=== PATIENT | female | born 1955 | race Caucasian/White ===

== ENCOUNTER 2018-12-30 10:34 | Day surgery (SDC) | payer MEDICAID ==
[~2018-12-30] VITALS: Ht 157.5 cm; Wt 83.5 kg
[~2018-12-30 10:34] MED LIST: ALBU05 IH; ALBU90AE IH; CHOL20004 PO; FLUT1DIS3 IH; SIMV10TA6 PO
[2018-12-30] MEDS ORDERED: TROPICAMIDE 1% OPHTH DROPS 15ML LEFTEYE SCH (11:00)
[2018-12-30] MEDS ORDERED: PHENYLEPHRINE HCL 10% OPHTH DROPS 5ML LEFTEYE SCH (11:00)
[2018-12-30] MEDS ORDERED: CYCLOPENTOLATE HCL 1% OPHTH DROPS 2ML LEFTEYE SCH (11:00)
[2018-12-30] MEDS ORDERED: LACTATED RINGERS 1,000 ML IV SCH (11:00)
[2018-12-30] MEDS ORDERED: BALANCED SALT IRRIG SOLN COMB1 500ML OP NR (11:15)
[2018-12-30] MEDS ORDERED: HYALURONATE SODIUM 14 MG/ML 0.85ML SYRINGE IO ONE (12:27)
[2018-12-30] MEDS ORDERED: CYCLOPENTOLATE HCL 1% OPHTH DROPS 2ML ONE (14:38)
[2018-12-30] MEDS ORDERED: LIDOCAINE HCL/PF 2% 20 MG/ML 10ML VIAL ONE (14:38)
[2018-12-30] MEDS ORDERED: NEO/POLYMYX B SULF/DEXAMETH OPHTH OINT 3.5GM ONE (14:38)
[2018-12-30] MEDS ORDERED: TETRACAINE 0.5% OPHTH DROPS 4ML ONE (14:38)
[2018-12-30] MEDS ORDERED: PHENYLEPHRINE HCL 10% OPHTH DROPS 5ML ONE (14:38)
[2018-12-30] MEDS ORDERED: BALANCED SALT IRRIG SOLN 15ML ONE (14:38)
[2018-12-30] MEDS ORDERED: PHENYLEPHRINE HCL 2.5% OPHTH DROPS 2ML ONE (14:38)
[2018-12-30] MEDS ORDERED: TROPICAMIDE 1% OPHTH DROPS 15ML ONE (14:38)
[2018-12-30] MEDS ORDERED: PREDNISOLONE ACETATE 1% OPHTH DROPS 1ML ONE (14:38)
[2018-12-30] MEDS ORDERED: MIDAZOLAM HCL 2 MG/2 ML VIAL ONE (14:39)
[2018-12-30] MEDS ORDERED: TRYPAN BLUE 0.5 ML DISP.SYRIN IO ONE (14:41)
[2018-12-30] MEDS ORDERED: FENTANYL CITRATE/PF 50MCG/ML 2ML VIAL ONE (14:44)
[2018-12-30] MEDS ORDERED: ONDANSETRON HCL 4MG/2ML INJ IV PRN (15:30)
[2018-12-30] MEDS ORDERED: FENTANYL CITRATE/PF 50MCG/ML 2ML VIAL IV PRN (15:30)
== END 2018-12-30 16:10 | disposition home or self-care (01) ==
LOC: OR 10:34
PROVIDERS: ATTEND Ophthalmology
DX: H25.89 Other age-related cataract (principal); J45.909 Unspecified asthma, uncomplicated; Z98.41 Cataract extraction status, right eye; Z90.49 Acquired absence of other specified parts of digestive tract; Z90.710 Acquired absence of both cervix and uterus
CPT/HCPCS: 66982; J2250; J3010; J3490; Q9957; V2632